=== PATIENT | male | born 1965 | race Asian ===

== ENCOUNTER 2018-03-04 10:25 | Emergency (ER) | payer SELFPAY ==
[~2018-03-04] VITALS: Ht 167.6 cm; Wt 72.6 kg
[2018-03-04 10:47] VITALS: BP 165/87
== END 2018-03-04 11:38 | disposition left against medical advice (07) ==
LOC: ER 10:25
DX: S61.213A Laceration without foreign body of left middle finger without damage to nail, initial encounter (principal); Z53.21 Procedure and treatment not carried out due to patient leaving prior to being seen by health care provider; X58.XXXA Exposure to other specified factors, initial encounter; Y93.89 Activity, other specified; Y99.8 Other external cause status; Y92.89 Other specified places as the place of occurrence of the external cause